=== PATIENT | female | born 1990 | race American Indian/Alaskan Native ===

== ENCOUNTER 2017-10-17 12:07 | Emergency (ER) | payer OTHER ==
[2017-10-17 12:30] VITALS: BP 114/65
[2017-10-17 14:13] LABS: Basophils # (Auto) 0.1 K/mm3 (0.0-0.1); Basophils % (Auto) 1.3 % (0.0-1.8); Eosinophils # (Auto) 0.1 K/mm3 (0.0-0.4); Hemoglobin 11.3 gm/dl (10.1-14.3); Lymphocytes # (Auto) 2.1 K/mm3 (1.2-5.4); Lymphocytes % (Auto) 32.6 % (13.4-35.0); Mean Corpuscular HGB Conc 33 % (30-34); Mean Corpuscular Hemoglobin 27 pg (28-32); Mean Corpuscular Volume 81 fl (79-97); Monocytes # (Auto) 0.6 K/mm3 (0.0-0.8); Monocytes % (Auto) 9.6 % (0.0-7.3); Platelet Count 332 K/mm3 (140-440); Red Blood Count 4.21 M/mm3 (3.65-5.03); Red Cell Distribution Width 14.3 % (13.2-15.2)
[2017-10-17 14:35] LABS: Alanine Aminotransferase 11 units/L (7-56); BUN/Creatinine Ratio 14; Blood Urea Nitrogen 10 mg/dL (7-17); Calcium 8.5 mg/dL (8.4-10.2); Transferrin 312 mg/dl (192-382)
[2017-10-17 14:36] LABS: Albumin 3.6 g/dL (3.9-5); Hemolysis Index 4; Lipase 27 units/L (13-60)
[2017-10-17 14:44] LABS: Free T4 (Free Thyroxine) 1.03 ng/dL (0.76-1.46); HCG,Quantitative < 2 mIU/mL (0-4)
--- NOTE | 2017-10-17 15:41 | Emergency Department Report ---
ED General Adult HPI - General Chief complaint: Medical Clearance Stated complaint: FATIGUE Time Seen by Provider: 10/17/17 13:49 Source: patient Mode of arrival: Ambulatory Limitations: No Limitations - History of Present Illness Initial comments: System 27-year-old -[place] female who presents with nausea and vomiting , diarrhea, and malaise for 2 weeks. Patient reports feeling very exhausted and fatigued for the past 2 weeks. Patient reports falling asleep while sitting at a stoplight a couple of days ago. States the last time she had these symptoms she was diagnosed with anemia. She is currently not taking anything for symptom relief. Her last menstrual period was 09/25/2017. She denies abdominal pain, dizziness, chest pain, shortness of breath, and palpitations. -: week(s) (2 weeks) Severity scale (0 -10): 0 Improves with: none Worsens with: eating Associated Symptoms: malaise, nausea/vomiting. denies: confusion, chest pain, cough, diaphoresis, fever/chills, headaches, loss of appetite, rash, seizure, shortness of breath, syncope, weakness Treatments Prior to Arrival: none - Related Data Allergies Allergy/AdvReac Type Severity Reaction Status Date / Time No Known Allergies Allergy Unverified 10/17/17 12:30 ED Review of Systems ROS: Stated complaint: FATIGUE Other details as noted in HPI Constitutional: denies: chills, fever Respiratory: denies: cough, shortness of breath, wheezing Cardiovascular: denies: chest pain, palpitations Gastrointestinal: nausea, vomiting, diarrhea. denies: abdominal pain Neurological: denies: headache, weakness, paresthesias Psychiatric: denies: anxiety, depression ED Past Medical Hx - Past Medical History Hx Asthma: Yes Additional medical history: chronic bronchitis - Social History Smoking Status: Never Smoker ED Physical Exam - General Limitations: No Limitations General appearance: alert, in no apparent distress - Respiratory Respiratory exam: Present: normal lung sounds bilaterally. Absent: respiratory distress - Cardiovascular Cardiovascular Exam: Present: regular rate, normal rhythm, normal heart sounds. Absent: systolic murmur, diastolic murmur, rubs, gallop - GI/Abdominal GI/Abdominal exam: Present: soft, normal bowel sounds. Absent: organomegaly, mass - Neurological Exam Neurological exam: Present: alert, oriented X3, normal gait - Psychiatric Psychiatric exam: Present: normal affect, normal mood ED Course Vital Signs 10/17/17 12:22 Temperature 98.4 F Pulse Rate 54 L Respiratory 16 Rate Blood Pressure 114/65 [Left] O2 Sat by Pulse 100 Oximetry ED Medical Decision Making - Lab Data Result diagrams: 10/17/17 13:50 10/17/17 13:50 - Medical Decision Making This is a 27 y.o. female presents with nausea, vomiting, diarrhea, and weakness for 2 week. Patient has a history of iron anemia. Patient was examined by me. Vital stable and in no acute distress. Obtained CMP, CBC, TSH, lipase, iron and TIBC. Iron and TIBC pending all of the labs within normal limits. Given Imodium once in the ER. Instructed to follow-up in 3-5 days for iron and TIBC results. Patient informed of results. Follow-up with primary care provider for further evaluation. Patient will be discharged home in stable condition. Start loperamide for diarrhea. She agrees with ER plan. Patient discharged home in stable condition. Follow up with PCP in 2-3 days. Critical care attestation.: If time is entered above; I have spent that time in minutes in the direct care of this critically ill patient, excluding procedure time. ED Disposition Clinical Impression: Malaise and fatigue, Well adult health check Disposition: TO HOME OR SELFCARE Is pt being admited?: No Does the pt Need Aspirin: No Condition: Stable Instructions: Weakness (ED), Fatigue (ED) Additional Instructions: Follow-up with [facility] for iron and total iron binding lab results in 3-5 days. Follow-up with primary care provider in 3-5 days. Take [id number] Imodium AD to help control diarrhea. Return to ER if lightheaded, palpitations, chest pain, and shortness of breath. [facility] [place] [Provider Group] - 3-[address] [facility] [Provider Group] - 3-5 Days [facility] [Provider Group] - 3-5 Days [facility] [Outside] - 3-5 Days Forms: Work/School Release Form(ED) Time of Disposition: 16:36 Print Language: AMERICAN
[2017-10-17] MEDS ORDERED: IMODIUM A-D PO ONE (16:38)
[2017-10-17 20:31] LABS: % Iron Saturation 22.16 %; Iron 86 ug/dL (37-170); Total Iron Binding Capacity 388 mcg/dL (250-450)
== END 2017-10-17 16:57 | disposition home or self-care (01) ==
LOC: ED 12:07
DX: R53.1 Weakness (principal); J45.909 Unspecified asthma, uncomplicated; R11.2 Nausea with vomiting, unspecified; R19.7 Diarrhea, unspecified
CPT/HCPCS: 36415; 80053; 83550; 83690; 84439; 84443; 84702; 85025; 99283